=== PATIENT | female | born 1975 | race Caucasian/White ===

== ENCOUNTER 2025-03-06 10:17 | Inpatient (IN) | payer MEDICAID, OTHER ==
[~2025-03-06] VITALS: Ht 162.6 cm; Wt 67.1 kg
[2025-03-06] MEDS ORDERED: DULO30CA62 PO (11:50)
[2025-03-06] MEDS ORDERED: BUSP5TAB20 PO (11:50)
[2025-03-06] MEDS ORDERED: BACL10TA PO (11:50)
[2025-03-06] MEDS ORDERED: CELE-146 PO (11:50)
[2025-03-06] MEDS ORDERED: MEMA10TA21 PO (11:50)
[2025-03-06] MEDS ORDERED: DICL100G60 TP (11:50)
[2025-03-06] MEDS ORDERED: DONE-51 PO (11:50)
[2025-03-06] MEDS ORDERED: LORA0.5T20 PO (11:50)
[2025-03-06 11:57] LABS: COVID AG,FIA SOURCE NASAL SWAB
[2025-03-06 12:23] LABS: SARS-COV2 (COVID) ANTIGEN,FIA Negative (Negative)
[2025-03-06 12:29] LABS: PLATELET COUNT (AUTO) 266 K/uL (150-450); RED BLOOD CELL COUNT(AUTO) 4.27 MIL/uL (4.00-5.20); RED CELL DISTRIBUTION WIDTH 13.5 % (11.5-14.5); WHITE BLOOD COUNT (AUTO) 7.6 K/uL (4.5-11.0)
[2025-03-06 12:39] LABS: CALCIUM, TOTAL 9.6 mg/dL (8.8-10.5); CREATININE 0.96 mg/dL (0.60-1.30); GLOMERULAR FILTR. RATE CALC > 60 mL/min (>60); GLUCOSE,RANDOM 92 mg/dL (70-110); SODIUM SERUM 140 mmol/L (136-145); UREA NITROGEN, BLOOD 17 mg/dL (7-18)
[2025-03-06] MEDS: LORazepam 2 MG/ML VIAL IM ONE (14:07)
[2025-03-06 14:19] LABS: APPEARANCE,URINE CLEAR (CLEAR); GLUCOSE, URINE (UA) NEGATIVE (NEGATIVE); LEUKOCYTE ESTERASE ,URINE NEGATIVE (NEGATIVE); NITRATE,URINE NEGATIVE (NEGATIVE); OCCULT BLOOD,URINE SMALL (NEGATIVE); PH,URINE DRUG SCREEN 6.5 (5.0-8.0); SPECIFIC GRAVITIY, URINE 1.029 (1.003-1.030)
[2025-03-06 14:27] LABS: ALCOHOL, URINE DRUG SCREEN NEGATIVE (NEGATIVE); AMPHET/METH SCREEN,URINE NEGATIVE (NEGATIVE); BARBITURATE SCREEN, URINE NEGATIVE (NEGATIVE); CANNABINOID SCREEN,URINE NEGATIVE (NEGATIVE); COCAINE SCREEN,URINE NEGATIVE (NEGATIVE); METHADONE SCREEN, URINE NEGATIVE (NEGATIVE)
[2025-03-06 14:40] LABS: SQUAMOUS EPITHELIAL CELL,UR Moderate /LPF (None Seen)
[2025-03-06 22:00] VITALS: BP 102/82; PULSE 60; RESP 17; TEMP 98.2; O2SAT 98
[2025-03-07] MEDS: ZOLPIDEM TARTRATE 10 MG TABLET PO PRN (01:41)
[2025-03-07 07:15] LABS: CHOL/HDL RATIO 2.8 (3.9-5.7); LDL CHOL (CALC.) 60.0 mg/dL (0-130)
[2025-03-07] MEDS ORDERED: ONDANSETRON 4 MG TABLET PO PRN (09:00)
[2025-03-07] MEDS ORDERED: BENZOCAINE/MENTHOL [CEPACOL] LOZENGE PO PRN (09:00)
[2025-03-07] MEDS ORDERED: PETROLATUM,WHITE 28 GM JELLY TP PRN (09:00)
[2025-03-07] MEDS ORDERED: ALBUTEROL SULFATE HFA 90 MCG/PUFF 8 GM INHALER IH PRN (09:00)
[2025-03-07] MEDS ORDERED: ACETAMINOPHEN 325 MG TABLET PO PRN (09:00)
[2025-03-07] MEDS ORDERED: LOPERAMIDE HCL 2 MG CAPSULE PO PRN (09:00)
[2025-03-07] MEDS ORDERED: DOCUSATE SODIUM 100 MG CAPSULE PO PRN (09:00)
[2025-03-07] MEDS ORDERED: BACITRACIN 28 GM OINTMENT TP PRN (09:00)
[2025-03-07] MEDS ORDERED: OMEPRAZOLE 20 MG CAPSULE PO PRN (09:00)
[2025-03-07] MEDS ORDERED: MAG HYDROX/ALUMINUM HYD/SIMETH ES 30 ML SUSPENSION UDCUP PO PRN (09:00)
[2025-03-07] MEDS: BACLOFEN 10 MG TABLET PO SCH (10:38)
[2025-03-07] MEDS: MEMANTINE HCL 10 MG TABLET PO SCH (10:38)
[2025-03-07] MEDS: DONEPEZIL HCL 10 MG TABLET PO SCH (10:38)
[2025-03-07] MEDS: CELECOXIB 100 MG CAPSULE PO SCH (10:41)
[2025-03-07 23:31] VITALS: BP 116/70; PULSE 100; RESP 18; TEMP 98; O2SAT 96
[2025-03-08] MEDS: CELECOXIB 100 MG CAPSULE PO SCH (06:37)
[2025-03-08 16:48] VITALS: BP 139/80; PULSE 64; RESP 16; TEMP 98.2; O2SAT 99
[2025-03-09 09:02] VITALS: BP 124/80; PULSE 79; RESP 18; TEMP 97.8; O2SAT 97
[2025-03-10 01:30] VITALS: BP 132/85; PULSE 59; RESP 18; TEMP 98.4; O2SAT 59
[2025-03-10 12:26] VITALS: BP 128/89; PULSE 119; RESP 17; TEMP 97.5; O2SAT 100
[2025-03-10 20:11] VITALS: BP 131/83; PULSE 102; RESP 18; TEMP 98.4; O2SAT 98
[2025-03-11 08:50] VITALS: BP 108/68; PULSE 102; RESP 16; TEMP 98.9; O2SAT 95
[2025-03-11] MEDS: LORazepam 2 MG/ML VIAL IM ONE (13:30)
[2025-03-11 21:24] VITALS: BP 147/86; PULSE 98; RESP 18; TEMP 98.8; O2SAT 98
[2025-03-12 16:17] VITALS: BP 100/86; PULSE 119; RESP 18; TEMP 98.2; O2SAT 96
[2025-03-12 20:09] VITALS: BP 143/99; PULSE 103; RESP 18; TEMP 98; O2SAT 97
[2025-03-12 21:44] VITALS: BP 123/85; RESP 18; O2SAT 96
[2025-03-12] MEDS: IBUPROFEN 600 MG TABLET PO PRN (21:51)
[2025-03-12 22:44] VITALS: RESP 18
[2025-03-13 15:37] VITALS: BP 122/95; PULSE 93; RESP 18; TEMP 98.2; O2SAT 96
[2025-03-13 20:00] VITALS: BP 132/88; PULSE 70; RESP 19; TEMP 97.9; O2SAT 100
[2025-03-14 09:48] VITALS: BP 120/91; PULSE 92; RESP 18; TEMP 98.3; O2SAT 96
[2025-03-14 20:19] VITALS: BP 103/77; PULSE 89; RESP 18; TEMP 97.4; O2SAT 95
[2025-03-15 09:53] VITALS: BP 120/90; PULSE 67; RESP 17; TEMP 98.6; O2SAT 98
[2025-03-15] MEDS: MAGNESIUM HYDROXIDE SUSPENSION 30 ML UDCUP PO PRN (13:34)
[2025-03-15 21:40] VITALS: BP 107/76; PULSE 81; RESP 18; TEMP 98.3; O2SAT 100
[2025-03-16 10:35] VITALS: BP 95/51; PULSE 96; RESP 18; TEMP 97.8; O2SAT 98
[2025-03-16 21:30] VITALS: BP 115/88; PULSE 100; RESP 18; TEMP 98; O2SAT 98
[2025-03-17 09:43] VITALS: BP 115/69; PULSE 80; RESP 18; TEMP 98.1; O2SAT 99
[2025-03-17] MEDS ORDERED: QUET25TA PO (17:41)
== END 2025-03-17 19:00 | DRG 761 ==
LOC: EMS 10:17 → 3EI 21:53
PROVIDERS: ADMIT Psychiatry & Neurology Psychiatry; ATTEND Psychiatry & Neurology Psychiatry
DX: F25.9 Schizoaffective disorder, unspecified (principal); F02.818 Dementia in other diseases classified elsewhere, unspecified severity, with other behavioral disturbance; G91.9 Hydrocephalus, unspecified; G30.0 Alzheimer's disease with early onset; Z20.822 Contact with and (suspected) exposure to COVID-19; G47.00 Insomnia, unspecified; K21.9 Gastro-esophageal reflux disease without esophagitis; M43.6 Torticollis
CPT/HCPCS: 70551; 80048; 80061; 80307; 81001; 83036; 85025; 87081; 92610; 99285; G0480; J1200; J1630; J2060